=== PATIENT | female | born 1990 | race Caucasian/White ===

== ENCOUNTER 2017-10-09 08:14 | Emergency (ER) | payer MEDICAID ==
[~2017-10-09] VITALS: Ht 160 cm; Wt 63.5 kg
[2017-10-09 08:15] VITALS: BP_SYST 139
[2017-10-09] MEDS ORDERED: ONDANSETRON 4 MG ODT TAB PO ONE (08:30)
[2017-10-09] MEDS ORDERED: NACL 0.9% 1,000 ML IV ONE (09:30)
[2017-10-09] MEDS ORDERED: MAG HYDROX/AL HYDROX/SIMETH 30 ML, LIDOCAINE VISCOUS 2% 15ML (PO) 10 ML, BELLADONNA ALK... PO ONE ×3 (09:30)
[2017-10-09] MEDS ORDERED: ONDANSETRON HCL 4 MG/2 ML VIAL IVP ONE (09:30)
[2017-10-09 09:33] LABS: BILIRUBIN,URINE NEGATIVE (NEGATIVE); BLOOD, URINE NEGATIVE (NEGATIVE); CLARITY/URINE SL HAZY (CLEAR); COLOR,URINE YELLOW (YELLOW); GLUCOSE,URINE NEGATIVE (NEGATIVE); KETONES,URINE 3+ (NEGATIVE); LEUKOCYTE ESTERASE ,URINE NEGATIVE (NEGATIVE); NITRITE, URINE NEGATIVE (NEGATIVE); PROTEIN URINE TRACE (NEGATIVE); UROBILINOGEN,URINE 0.2 (0.2-1.0)
[2017-10-09 09:55] LABS: BACTERIA,URINE RARE /HPF (None Seen); MUCUS,URINE 1+ /LPF (None Seen); RBC,URINE 0-3 /HPF (0-3); WBC,URINE 0-3 /HPF (0-3)
[2017-10-09 11:09] VITALS: BP_SYST 121
== END 2017-10-09 11:08 | disposition home or self-care (01) ==
LOC: SED 08:14
DX: R10.12 Left upper quadrant pain (principal); R11.2 Nausea with vomiting, unspecified; R19.7 Diarrhea, unspecified
CPT/HCPCS: 81000; 81025; 96361; 96374; 99284; J2001; J2405; J7030; Q0162